=== PATIENT | male | born 1975 | race Caucasian/White ===

== ENCOUNTER → 2016-07-11 | Outpatient (CLI) | payer BC ==
--- NOTE | 2016-07-11 15:01 | CT ---
EXAMINATION TYPE: CT brain wo con DATE OF EXAM: 07/11/2016 2:57 PM COMPARISON: NONE HISTORY: Patient hit head one month ago and still having headaches CT DLP: 1022 mGycm Automated exposure control for dose reduction was used. FINDINGS: There is no acute intracranial hemorrhage, mass effect, or midline shift identified. The ventricles and sulci are within normal limits in size. The globes are intact and the visualized sinuses are rem arkable for minimal inflammatory change in the ethmoid air cells. IMPRESSION: No acute intracranial hemorrhage, mass effect, or midline shift is seen.
== END | disposition home or self-care (01) ==
LOC: RADCTMAIN 13:53
PROVIDERS: ATTEND Family Medicine
DX: G44.309 Post-traumatic headache, unspecified, not intractable (principal)
CPT/HCPCS: 70450

== ENCOUNTER 2018-03-14 15:53 | Emergency (ER) | payer BC ==
[2018-03-14 16:06] VITALS: RESP 18
--- NOTE | 2018-03-14 16:43 | ED ---
General Adult HPI - General Chief complaint: ENT Stated complaint: Nose Bleed Time Seen by Provider: 03/14/18 16:11 Source: patient, RN notes reviewed Mode of arrival: ambulatory Limitations: no limitations - History of Present Illness Initial comments: 42-year-old male presents to the emergency department for a chief complaint of nosebleeds. Patient states these have been ongoing for the past few months. Patient states he has bleeding out of the right nares. Patient states this lasted for 20 minutes earlier today. He states it then stopped. Patient states he has no bleeding down his throat. He states his family member wanted him to be evaluated so he came to the emergency department. Patient states he does have a history of hypertension but is not on any antihypertensives. Patient has not seen ear nose throat. Patient has no other complaints at this time including shortness of breath, chest pain, abdominal pain, nausea or vomiting, headache, or visual changes. - Related Data Previous Rx's Medication Instructions Recorded Oxymetazoline 0.05% Nasl Ralston 2 spray EA NOSTRIL ONCE PRN #1 03/14/18 [Afrin 0.05% Nasal Ralston] bottle Allergies Allergy/AdvReac Type Severity Reaction Status Date / Time No Known Allergies Allergy Verified 03/14/18 16:06 Review of Systems ROS Statement: Those systems with pertinent positive or pertinent negative responses have been documented in the HPI. ROS Other: All systems not noted in ROS Statement are negative. Past Medical History Past Medical History: No Reported History History of Any Multi-Drug Resistant Organisms: None Reported Past Surgical History: Appendectomy Past Psychological History: No Psychological Hx Reported Smoking Status: Never smoker Past Alcohol Use History: Occasional Past Drug Use History: None Reported General Exam Limitations: no limitations General appearance: alert, in no apparent distress Head exam: Present: atraumatic, normocephalic, normal inspection Eye exam: Present: normal appearance, PERRL, EOMI. Absent: scleral icterus, conjunctival injection, periorbital swelling ENT exam: Present: normal exam, mucous membranes moist, TM's normal bilaterally , normal external ear exam. Absent: normal oropharynx (no bleeding in the oropharynx. no current bleeding of nares. no area of cautery.) Neck exam: Present: normal inspection, full ROM. Absent: tenderness, meningismus, lymphadenopathy Respiratory exam: Present: normal lung sounds bilaterally. Absent: respiratory distress, wheezes, rales, rhonchi, stridor Cardiovascular Exam: Present: regular rate, normal rhythm, normal heart sounds. Absent: systolic murmur, diastolic murmur, rubs, gallop, clicks Neurological exam: Present: alert, oriented X3, CN II-XII intact Psychiatric exam: Present: normal affect, normal mood Course Vital Signs 03/14/18 03/14/18 03/14/18 16:03 16:56 17:30 Temperature 98.4 F 98.8 F Pulse Rate 79 83 78 Respiratory 18 18 18 Rate Blood Pressure 156/107 149/100 151/99 O2 Sat by Pulse 98 97 98 Oximetry Medical Decision Making - Medical Decision Making 42-year-old male presents for a chief complaint of nosebleeds. Patient states this has been ongoing for the past few months. Patient states that today he had right nasal bleeding for 20 minutes. He states his family member wanted him to be evaluated but this did stop on its own. On exam there is no bleeding of the nare. No blood noted in oropharynx. Patient is well-appearing. Patient was given Afrin spray prescription and nasal clamp. Patient is mildly hypertensive here in the emergency department. He does have a mild headache states this is chronic and he gets headaches daily. Patient states he knows he has hypertension and is not compliant with his medications. He will follow up with his primary caregiver provider. Referral was given for hypertension. He will follow-up with ENT for nosebleeds. No bleeding within the emergency department upon DC. Disposition Clinical Impression: Epistaxis Disposition: HOME SELF-CARE Condition: Good Additional Instructions: If bleeding of the nose starts again, use 2 sprays of Afrin in each nostril and clamp the nose for 20 minutes. If this does not resolve try this process again. If bleeding still does not resolve return to the emergency department. Please follow-up with ENT for nosebleeds and primary care for hypertension. Please return if you have any worsening symptoms. Prescriptions: Oxymetazoline 0.05% Nasl Ralston [Afrin 0.05% Nasal Ralston] 2 spray EA NOSTRIL ONCE PRN #1 bottle PRN Reason: Bleeding Is patient prescribed a controlled substance at d/c from ED?: No Referrals: Gurmeet Hallman MD [STAFF PHYSICIAN] - 1-2 days Juan Mcdaniel DO [Doctor of Osteopathic Medicine] - 1-2 days Migdalia Saucedo MD [STAFF PHYSICIAN] - 1-2 days Time of Disposition: 16:39
[2018-03-14 17:55] VITALS: BP 151/99; PULSE 78; TEMP 98.8
== END 2018-03-14 17:55 | disposition home or self-care (01) ==
LOC: EC 15:53
DX: R04.0 Epistaxis (principal); I10 Essential (primary) hypertension; R51 Headache
CPT/HCPCS: 99283